=== PATIENT | male | born 1985 | race African-American/Black ===

== ENCOUNTER 2018-03-04 00:27 | Emergency (ER) | payer SELFPAY ==
[~2018-03-04] VITALS: Ht 170.2 cm; Wt 81.7 kg
[2018-03-04 01:38] LABS: CHLORIDE 101 mEq/L (99-109); POTASSIUM 4.3 mEq/L (3.7-5.4); SODIUM 137 mEq/L (136-147)
[2018-03-04 01:39] LABS: GLUCOSE 100 mg/dL (70-99)
[2018-03-04 01:43] LABS: CREATININE 0.9 mg/dL (0.6-1.3); GFR ESTIMATE (CALCULATED) > 59 mL/min/ (58.99-99999)
[2018-03-04 01:44] LABS: UREA NITROGEN (BUN) 9 mg/dL (9-23)
[2018-03-04] MEDS ORDERED: MOTRIN800 MG PO (02:10)
[2018-03-04] MEDS ORDERED: NORVASC5 MG PO (02:10)
[2018-03-04] MEDS ORDERED: NORCO 7.5/321 TABLET PO (02:10)
[2018-03-04 06:18] VITALS: BP 158/114
== END 2018-03-04 06:38 | disposition home or self-care (01) ==
LOC: EME 00:27
PROVIDERS: Physician Assistant
DX: G56.01 Carpal tunnel syndrome, right upper limb (principal); I10 Essential (primary) hypertension
CPT/HCPCS: 80048; 93005; 99281; 99284